=== PATIENT | male | born 1995 | race American Indian/Alaskan Native ===

== ENCOUNTER 2025-05-10 11:19 | Emergency (ER) | payer OTHER, SELFPAY ==
[2025-05-10 11:28] VITALS: BP 133/80
[2025-05-10 11:28] LABS: Glucose - Point of Care 264 mg/dl (70-99)
[2025-05-10] MEDS: LR 1000 IV (13:36)
--- NOTE | 2025-05-10 13:40 | ED.GENMED ---
History of Present Illness
General
Chief Complaint: Blood Sugar Problem
Time Seen by Provider: 05/10/25 13:13
History of Present Illness
History of Present Illness:
Note:
CHIEF COMPLAINT(S)
Elevated blood sugar levels.
HISTORY OF PRESENT ILLNESS
The patient is a 30-year-old male with a history of type 2 diabetes mellitus diagnosed approximately six years ago. He was previously on Metformin and insulin for about one and a half years but discontinued these medications. He has experienced
untreated elevated blood glucose levels for a period prior to this visit. Recently, the patient has noted a significant weight loss of approximately 20 pounds over five years, primarily noted when not under medical supervision. The patient reports
increased thirst and frequent urination but denies having symptoms such as pain in the abdomen or vomiting. The patient currently presents with concerns about the high blood glucose levels after not seeing a primary care provider for years.
EXTERNAL RECORDS REVIEWED
The patient has previous medical records noting a prescription of Metformin and insulin for diabetes management.
CHRONIC MEDICAL CONDITIONS SIGNIFICANTLY AFFECTING CARE
Type 2 diabetes mellitus.
PHYSICAL EXAM
- The patient appears well and is in no acute distress.
- Oral mucous membranes are moist.
- The heart rate is regular without murmurs.
- Lung alas are clear upon auscultation.
- The abdomen is non-tender.
- Capillary refill of less than two seconds.
PLAN
1. Perform basic laboratory evaluations, including checking hemoglobin A1c and urine analysis for ketones.
2. Administer intravenous fluids to address possible dehydration due to elevated blood glucose levels and associated diuresis.
3. Administer a single dose of insulin as a corrective measure.
4. Recommend initiation of oral diabetes management with Metformin and eventual follow-up with primary care for possible adjustment in diabetes management therapy, considering agents such as Ozempic or Yogi.
5. Encourage lifestyle modifications to improve glycemic control.
DIFFERENTIAL DIAGNOSIS
The Differential Diagnosis includes, in no particular order and is not limited to:
1. Uncontrolled type 2 diabetes mellitus
2. Diabetic ketoacidosis
3. Hyperosmolar hyperglycemic state
4. Weight loss due to chronic illnesses
5. Thyrotoxicosis
6. Adrenal insufficiency
7. Gastroparesis associated with diabetes
8. Renal glycosuria
9. Medication-induced hyperglycemia
10. Dumping syndrome
Disposition:
DIAGNOSIS
- Uncontrolled type 2 diabetes mellitus (E11.65)
SUMMARY OF ENCOUNTER
A 30-year-old male with a known history of uncontrolled type 2 diabetes presented to the emergency department with symptoms of polyuria and polydipsia. The patient has been non-compliant with diabetes medications for several years. Upon evaluation,
the patient was found to have ketoneuria, indicating ketosis, although there was no anion gap detected. Emergency treatment included administering a small dose of subcutaneous insulin and intravenous fluids. The patient was apprehensive about
restarting insulin therapy; therefore, a plan was made to initiate oral Metformin and arrange follow-up with an naprapath at his primary care physicians office for further diabetes management.
EMERGENCY TREATMENTS ADMINISTERED
- Subcutaneous insulin
- Intravenous fluids
PLAN
1. Initiate oral diabetes management with Metformin.
2. Recommend follow-up with an naprapath through the primary care physician as an outpatient for further diabetes management.
INDEPENDENT INTERPRETATION OF TESTS
My independent interpretation of urine analysis indicates ketoneuria, consistent with ketosis.
FOLLOW-UP INSTRUCTIONS
Please follow up with your primary care physician for outpatient management and consultation with an naprapath.
MEDICAL DECISION MAKING
The patient presented with both acute and chronic components related to uncontrolled diabetes. Immediate interventions, including insulin administration and IV fluids, were required to manage the acute symptoms and ketosis. The consideration of
reintroducing oral Metformin and arranging for specialist follow-up underscores the need for comprehensive diabetes management. Risk assessment included the patients non-compliance with previous medication regimens and the potential complications of
uncontrolled hyperglycemia.
Past History
Past History
ED Past Medical History: None
Social History
Tobacco: Non-smoker
Living: with family
Employment: Student
Phy Exam
Physical Exam
Physical Exam:
.
Course
Orders/Labs/Results
Orders:
Orders
05/10/25 13:25
Lactated Ringers [Lr] 1,000 ml IV BOLUS
05/10/25 13:33
Complete Blood Count/No Diff Urgent
Glycohemoglobin (HgbA1c) Urgent
05/10/25 14:41
B-Hydroxybutyrate Urgent
Comprehensive Metabolic Panel Urgent
TSH Reflex To Free T4 Urgent
Comment: ADD ON
Urinalysis Reflex To Culture Urgent
Date Specimen was Collected: 05/10/25
Time Specimen was Collected: 14:40
Urine Microscopic Reflex Cult Urgent
05/10/25 15:18
Insulin Aspart [NOVOLOG vial] 4 units SC NOW STA
05/10/25 15:53
Add On- LAB Urgent
Tests Added?: TSH with reflex to T4
05/10/25 16:34
Add On- LAB Urgent
Tests Added?: HGB A1c
Abnormal Lab Results
05/10/25 05/10/25 05/10/25
11:27 14:41 16:28
Creatinine 0.4 L mg/dL
(0.7-1.3)
Glucose 248 H mg/dl
(70-99)
Urine Ketones 3+ A
(Negative)
Urine Bacteria (Reflex) Few A
(Negative)
Urine Glucose 4+ A
(Negative)
Urine Albumin (Reflex) 2+ A
(Neg - Trace)
B-Hydroxybutyrate 1.33 H mmol/L
(0.02-0.27)
POC Glucose 264 H mg/dl 277 H mg/dl
(70-99) (70-99)
05/10/25 13:33
05/10/25 14:41
Vital Signs
Initial and Last Documented VS:
Initial Vital Signs
Temp Pulse Resp BP Pulse Ox
98.0 F 99 16 133/80 98
05/10/25 11:28 05/10/25 11:28 05/10/25 11:28 05/10/25 11:28 05/10/25 11:28
Last Documented Vital Signs
Temp Pulse Resp BP Pulse Ox
98.0 F 85 18 113/83 99
05/10/25 11:28 05/10/25 14:49 05/10/25 14:49 05/10/25 14:49 05/10/25 14:49
*Pulse Oximetry
Patient hypoxic: no
Comment: 98%
*Critical Care Note
Total Time (30-74mins, 75-104mins- exclusive of procedures): Not Applicable
ED Attending Note
-
Portions of this chart may have been created with voice recognition software.� Occasional wrong word or��sound alike� substitutions may have occurred due to the inherent limitations of voice recognition software.
Discharge Plan
Departure
Patient Disposition: Home (Routine Discharge)
Date of Disposition: 05/10/25
Time of Disposition: 16:34
Patient with high blood pressure during this ER visit?: No
Discharge Problem:
Type II diabetes mellitus, uncontrolled
Instructions: Type 2 Diabetes (DC)
Prescriptions:
New
metformin 500 mg tablet
500 mg PO BID Qty: 60 0RF
No Action
insulin aspart U-100 [Novolog FlexPen U-100 Insulin] 300 UNITS/3 ML insulin pen
5 units SC DAILY@1130 Qty: 0 0RF
insulin aspart U-100 [Novolog FlexPen U-100 Insulin] 300 UNITS/3 ML insulin pen
5 units SC DAILY@0730 Qty: 0 0RF
insulin aspart U-100 [Novolog FlexPen U-100 Insulin] 300 UNITS/3 ML insulin pen
5 units SC DAILY@1630 Qty: 0 0RF
insulin glargine [Lantus Solostar U-100 Insulin] 300 UNITS/3 ML insulin pen
15 units SC HS Qty: 0 0RF
Referrals:
Soha Avendano MD [Consulting Staff, Endocrinology]
UNKNOWN - PT DOES,NOT KNOW [Family Provider]
Activity Restrictions/Additional Instructions:
Follow-up with your primary care physician and endocrinology for next steps diabetes management
Interventions
Interventions:
*Risk Screen - Suicide Last Done: 05/10/25 11:28
*General Assessment Last Done: 05/10/25 13:41
*Neglect/Abuse Screening Last Done: 05/10/25 11:28
*ED- Fall Risk Assessment Last Done: 05/10/25 13:41
*Nursing Disposition Last Done: 05/10/25 16:43
ED- Neurological Assessment Last Done: 05/10/25 13:40
Discharge Date and Time
Discharge Date/Time: 05/10/25 16:45
Print Language: NEPALI
[2025-05-10 13:49] LABS: Hemoglobin 16.1 g/dL (13.0-18.0); Mean Corpuscular Hgb 30.1 pg (27.0-31.0); Mean Platelet Volume 9.5 fL (7.4-10.4); Platelet Count 272 10^3/uL (130-400); Red Blood Cell Count 5.35 10^6/uL (4.70-6.10); Red Cell Dist. Width 12.2 % (11.5-14.5); White Blood Cell Count 5.8 10^3/uL (4.8-10.8)
[2025-05-10 14:49] VITALS: BP 113/83
[2025-05-10 15:02] LABS: Urine Albumin 2+ (Neg - Trace); Urine Bilirubin Negative (Negative); Urine Character Clear (Clear); Urine Color Yellow; Urine Glucose 4+ (Negative); Urine Ketone 3+ (Negative); Urine Leukocyte Negative (Negative); Urine Nitrite Negative (Negative); Urine Occult Blood Negative (Negative); Urine Urobilinogen Negative (Neg - 1+)
[2025-05-10 15:05] LABS: ALT (SGPT) 22 U/L (0-50); AST (SGOT) 17 U/L (17-59); Albumin 4.4 g/dl (3.5-5.0); Alkaline Phosphatase 67 U/L (38-126); Blood Urea Nitrogen 15 mg/dl (9-20); Calcium 10.1 mg/dl (8.4-10.2); Carbon Dioxide 27 mmol/L (22-30); Chloride 103 mmol/L (98-107); Glucose 248 mg/dl (70-99); Potassium 4.4 mmol/L (3.5-5.1); Sodium 138 mmol/L (135-145); Total Bilirubin 0.9 mg/dl (0.2-1.3); Total Protein 7.1 g/dl (6.3-8.2); eGFR > 60.00
[2025-05-10 15:11] LABS: B-Hydroxybutyrate 1.33 mmol/L (0.02-0.27)
[2025-05-10 15:15] VITALS: BMI 18.8
[2025-05-10] MEDS: NOVOLOG vial 4 UNITS SC (15:21)
[2025-05-10 15:29] LABS: Urine Red Blood Cell 0-2 /HPF (0-2); Urine Squamous Cell 0-2 /LPF (Few); Urine White Cell 0-2 /HPF (0-5)
[2025-05-10 15:30] LABS: Urine Bacteria Few (Negative)
[2025-05-10 16:30] LABS: Glucose - Point of Care 277 mg/dl (70-99)
[2025-05-10 17:43] LABS: TSH Reflex To Free T4 0.54 uIU/ml (0.47-4.68)
[2025-05-11 10:52] LABS: Glycohemoglobin (HgbA1c) 12.7 % (4.0-5.6)
== END 2025-05-10 16:45 | disposition home or self-care (01) ==
LOC: EMR 11:19
PROVIDERS: Physician Assistant; EMERGENCY PHYSICIAN Emergency Medicine
DX: E11.65 Type 2 diabetes mellitus with hyperglycemia (principal); Z91.148 Patient's other noncompliance with medication regimen for other reason; Z79.84 Long term (current) use of oral hypoglycemic drugs; Z79.4 Long term (current) use of insulin
CPT/HCPCS: 99284; 96372; 80053; 81003; 81015; 82010; 82962; 83036; 84443; 85027